=== PATIENT | female | born 1945 | race Caucasian/White ===

== ENCOUNTER → 2018-10-17 | Outpatient (CLI) | payer MEDICARE, OTHER ==
[~2018-10-17] MED LIST: ASPI-1441 PO; CELE-1 PO; CEPH250C37 PO; DIA5 PO; ESOM20CA31 PO; EST625 PO; MULT-1372 PO; ONDA4TAB PO; OXYC-865 PO; PANT40SU3 PO; PER PO; PRO25 PO; SERT-184 PO; ZOL5 PO
--- NOTE | 2018-10-17 14:59 | RADIOLOGY IMAGING REPORT ---
FACILITY: PATIENT NAME: Dalila Christianson : 1945 MR: [id number] V: [id number] EXAM DATE: ORDERING PHYSICIAN: ISSAC JARA TECHNOLOGIST: Location: [facility] Patient: Dalila Christianson : 1945 Visit/Account:[id number] Date of Sevice: 10/17/2018 CT angiogram chest with contrast Indication: Shortness breath. Recent right shoulder surgery. Comparison: None available. Technique: Axial CT images are obtained through the chest after administration of 75 mL Isovue 370 IV contrast. Reformatted coronal and sagittal images were reviewed as well as coronal MIP images. One of the following dose optimization techniques was utilized in the performance of this exam: auto mated exposure control; adjustment of the mA and/or kV according to the patient's size; or use of an iterative reconstruction technique. Specific details can be referenced in the facility's radiology C T exam operational policy. FINDINGS: No evidence of filling defect within the pulmonary vasculature to suggest pulmonary embolus. Heart is normal size without significant pleural fluid. Aorta shows no aneurysm or dissection with mi nimal atherosclerotic calcific changes. The mediastinum and hilar regions show no enlarged lymph node s or abnormal density. Lungs show no consolidation, pleural effusion or pneumothorax. No discrete nodule or focal interstiti al opacities. Prominent scarring seen in the right middle lobe. The airways are clear. Bony structures show no acute fractures or aggressive bony lesions. Degenerative change seen spine. T here is partial visualization of fusion of the cervicothoracic spine without sequelae. Right shoulder does show recent postsurgical changes of arthroplasty without acute sequelae and usual residual post surgical findings. Chest wall shows no enlarged axillary lymph nodes or masses. Limited views of the upper abdomen are unremarkable. IMPRESSION: 1. No evidence of pulmonary embolus. 2. No acute cardiothoracic abnormality 3. Status post right shoulder arthroplasty with usual postsurgical changes. No acute sequelae. Report Dictated By: Leo Fischer at 10/17/2018 2:45 PM Report E-Signed By: Leo Fischer at 10/17/2018 2:55 PM WSN:[id number]
== END ==
LOC: LAB 12:30
PROVIDERS: ATTEND Family Medicine
DX: R06.02 Shortness of breath (principal)
CPT/HCPCS: 36415; 71275; 82565; 84520; 85379; Q9967